=== PATIENT | male | born 1965 | race Caucasian/White ===

== ENCOUNTER → 2017-02-11 | Outpatient (REF) | payer OTHER | LOC: M LAB REF 12:59 | PROVIDERS: ATTEND Internal Medicine | DX: N52.9 Male erectile dysfunction, unspecified (principal); R53.83 Other fatigue ==

== ENCOUNTER → 2024-07-14 | Outpatient (REF) | payer OTHER | LOC: M LAB REF 12:55 | PROVIDERS: ATTEND Internal Medicine | DX: R53.83 Other fatigue (principal) ==

== ENCOUNTER → 2025-01-01 | Outpatient (CLI) | payer OTHER ==
[2025-01-01 12:46] LABS: HEMATOCRIT 41.2 % (42.0-52.0); HEMOGLOBIN 13.9 g/dl (13.5-17.5); MEAN CORPUSCULAR HEMOGLOBIN 30.2 pg (27.0-33.0); MEAN CORPUSCULAR HGB CONC 33.7 g/dl (32.0-36.5); MEAN CORPUSCULAR VOLUME 89.6 fl (80.0-96.0); PLATELET COUNT, AUTOMATED 227 10^3/uL (150-450); WHITE BLOOD COUNT 6.1 10^3/uL (4.0-10.0)
[2025-01-01 13:12] LABS: THYROID STIMULATING HORMONE 3.045 uIU/ML (0.55-4.78)
[2025-01-01 13:13] LABS: ALKALINE PHOSPHATASE 55 U/L (40-129); ALT/SGPT 32 U/L (7.0-40); AST/SGOT 20 U/L (<34); BILIRUBIN,DIRECT 0.1 MG/DL (<0.4); BILIRUBIN,TOTAL 0.5 MG/DL (0.3-1.2); BLOOD UREA NITROGEN 19 MG/DL (9-23); CALCIUM LEVEL 9.2 MG/DL (8.5-10.1); CARBON DIOXIDE LEVEL 28 MMOL/L (20-31); CHLORIDE LEVEL 103 MMOL/L (98-107); CREATININE FOR GFR 0.82 MG/DL (0.70-1.30); FREE T4 1.21 NG/DL (0.89-1.76); GLOMERULAR FILTRATION RATE > 60.0 (>56); GLUCOSE, FASTING 153 MG/DL (60-100); POTASSIUM SERUM 4.6 MMOL/L (3.5-5.1); PROLACTIN 8.63 NG/ML (2.1-17.7); SODIUM LEVEL 139 MMOL/L (136-145); TOTAL PROTEIN 7.2 G/DL (5.7-8.2)
[2025-01-01 13:14] LABS: ESTRADIOL < 19.0 PG/ML (<39.8); FOLLICLE STIMULATING HORMONE 6.4 mIU/ML (1.4-18.1)
[2025-01-01 13:15] LABS: LUTEINIZING HORMONE 5.5 mIU/ML (1.5-9.3)
[2025-01-02 08:58] LABS: HCG SERUM TUMOR MARKER QUANT < 5 mIU/mL (<5)
== END ==
LOC: M WUC 09:58
PROVIDERS: ATTEND Plastic Surgery Surgery of the Hand
DX: N62 Hypertrophy of breast (principal)

== ENCOUNTER 2025-05-06 06:06 | Observation (INO) | payer SELFPAY ==
[~2025-05-06] VITALS: Ht 175.3 cm; Wt 97.4 kg
[2025-05-06] VITALS (8 sets, daily range): BP systolic 130–152; BP diastolic 65–93; TEMP 96.8–97.5; O2SAT 93–99
[2025-05-06] MEDS ORDERED: LR 1,000 ML IV SCH ×2 (06:20→12:25)
[2025-05-06] MEDS ORDERED: LIDOCAINE 2% 100 MG/5 ML SDV (FOR ANES.) As Ordered ONE (07:22)
[2025-05-06] MEDS ORDERED: dexmedeTOMIDine (4 MCG/ML) 200 MCG/50 ML BTL As Ordered ONE (07:22)
[2025-05-06] MEDS ORDERED: ROCURONIUM BROMIDE 50MG/5ML VIAL As Ordered ONE (07:22)
[2025-05-06] MEDS ORDERED: dexAMETHasone 4 MG/ML 1 ML VIAL As Ordered ONE (07:22)
[2025-05-06] MEDS ORDERED: MIDAZOLAM INJ 2 MG/2 ML VIAL As Ordered ONE (07:23)
[2025-05-06] MEDS: HEPARIN SOD 5000 UNITS/ML 1 ML VIAL/SYRINGE SQ ONE (07:54)
[2025-05-06] MEDS: ceFAZolin SOD 2 GM IV ONCE IV ONE (07:55)
[2025-05-06] MEDS ORDERED: LACRILUBE (AKWA TEARS) OPHTH OINT 3.5 GM As Ordered ONE (08:14)
[2025-05-06] MEDS ORDERED: ACETAMINOPHEN 1000MG/100ML IV BAG As Ordered ONE (08:14)
[2025-05-06] MEDS ORDERED: SUGAMMADEX SODIUM 500 MG/5 ML VIAL As Ordered ONE (08:14)
[2025-05-06] MEDS: EPINEPHrine INJ 1 MG/ML 1ML AMP As Ordered ONE (08:32)
[2025-05-06] MEDS: LIDOCAINE 1% MDV 20 ML VIAL As Ordered ONE (08:33)
[2025-05-06] MEDS ORDERED: HYDROmorphone HCL 2 MG/ML 1 ML VIAL As Ordered ONE (08:39)
[2025-05-06] MEDS: GENTAMICIN SULF 80 MG/2 ML VIAL As Ordered ONE (09:50)
[2025-05-06] MEDS ORDERED: HYDROMORPHONE HCL 0.5 MG/0.5 ML SYRINGE IV PRN (12:25)
[2025-05-06] MEDS ORDERED: ONDANSETRON 4MG 2ML VIAL IV PRN ×2 (12:25→12:50)
[2025-05-06] MEDS ORDERED: traMADol 50 MG TAB PO PRN (12:50)
[2025-05-06] MEDS ORDERED: PERCOCET 5MG/325MG TAB PO PRN (12:50)
[2025-05-06] MEDS ORDERED: ACETAMINOPHEN 325 MG TAB PO PRN (12:50)
[2025-05-06] MEDS: LR 1,000 ML IV SCH (14:00)
[2025-05-06] MEDS: ceFAZolin SODIUM 2 GM in DEXTROSE 5% (D5W) ADV/MINI-BAG 50 ML IV SCH (16:14)
[2025-05-07 06:39] VITALS: BP 116/60; TEMP 97.5; O2SAT 94
[2025-05-07] MEDS ORDERED: TRAM50TA2 PO (10:45)
== END 2025-05-07 12:00 | disposition home or self-care (01) ==
LOC: M SDC 06:06 → M RR INP 06:07 → M MS5PR 13:20
PROVIDERS: ADMIT Plastic Surgery Surgery of the Hand; ATTEND Plastic Surgery Surgery of the Hand
DX: N62 Hypertrophy of breast (principal); N64.81 Ptosis of breast; E88.1 Lipodystrophy, not elsewhere classified; J30.9 Allergic rhinitis, unspecified; R06.83 Snoring
CPT/HCPCS: 15877; 19300; 88300; 88305; 96374; 96376; J0131; J0166; J0665; J0666; J0690; J1100; J1171; J1580; J2250; J3010